=== PATIENT | female | born 1955 | race Caucasian/White ===

== ENCOUNTER 2017-09-07 11:02 | Emergency (ER) | payer BC ==
[~2017-09-07] VITALS: Ht 170.2 cm; Wt 158.8 kg
--- NOTE | 2017-09-07 12:09 | RAD ---
Left knee with patella, 4 views, 09/07/2017: History: Trauma No fracture or dislocation is identified. There is mild marginal spurring at the knee joint. There is more severe degenerative change at the patellofemoral articulation. No definite joint effusion is seen. IMPRESSION: 1. Moderate degenerative change. 2. No acute bony abnormality is detected.
--- NOTE | 2017-09-07 12:32 | PHYS DOC ---
General Chief Complaint: KNEE INJURY Stated Complaint: KNEE PAIN Time Seen by MD: 11:20 Source: patient Exam Limitations: no limitations Problems: History of Present Illness Initial Comments Patient is a 61-year-old morbidly obese female who comes to the ED complaining of left knee pain. Patient states that she stepped off curb wrong one week ago and felt a pop in her knee. She's had medial left knee pain since that time, she says she's had some swelling and cannot bear weight although she is ambulatory in the department. She complains of medial knee pain denies her knee giving out, she has not sought any medical treatment for this during this past week but today comes to the emergency department requesting pain medications. No left leg numbness tingling weakness or radiating symptoms, [id number] medications not helping. She denies prior left knee injury and states she did not actually fall and suffered no other injuries during the incident. Onset: last week Severity: severe Pain/Injury Location: left knee Method of Injury: other Modifying Factors: worse with jarring, worse with movement Allergies: Coded Allergies: Sulfa (Sulfonamide Antibiotics) (Verified Allergy, Unknown, 09/07/17) tramadol (Verified Allergy, Unknown, 09/07/17) Past Medical History Medical History: other (anxiety) Surgical History: other (hysterectomy, bilateral carpal tunnel) Social History Smoker: cigarettes Alcohol: none Drugs: none Review of Systems Constitutional: denies chills, denies fever Respiratory: denies cough, denies shortness of breath Cardiovascular: denies chest pain, denies palpitations Gastrointestinal: denies nausea, denies vomiting Musculoskeletal: see HPI (CT I told multiple) Skin: denies change in color Psychiatric/Neurological: see HPI Physical Exam General Appearance: no apparent distress, obese Neck: non-tender, supple Cardiovascular/Respiratory: normal peripheral pulses, no respiratory distress Back: no CVA tenderness, no vertebral tenderness Knees: right knee non-tender, right knee normal inspection, right knee normal range of motion, left knee other (one plus effusion, medial joint line tenderness, ligaments and tendons are intact Yesenia appears to be negative exam limited somewhat by patient's size. No palpable bony deformity and no bony tenderness. The extremity is neurovascularly intact. There are no skin breaks or abrasions or discolorations.) Neurologic/Tendon: normal sensation, normal motor functions, normal tendon functions, responds to pain, no evidence tendon injury Psychiatric: alert, oriented x 3 Skin: normal color, warm/dry Orders, Labs, Meds PATIENT: SRUTHI WILSON ACCOUNT: [id number] : 1955 LOCATION: ER AGE: 61 SEX: F EXAM STATUS: REG ER ORD. PHYSICIAN: MANASA WISDOM DO REASON: trauma PROCEDURE: KNEE LEFT 4V Left knee with patella, 4 views, 09/07/2017: History: Trauma No fracture or dislocation is identified. There is mild marginal spurring at the knee joint. There is more severe degenerative change at the patellofemoral articulation. No definite joint effusion is seen. IMPRESSION: 1. Moderate degenerative change. 2. No acute bony abnormality is detected. DICTATED AND SIGNED BY: DAVID JARA MD DATE: 09/07/17 1205 CC: PCP,NO; MANASA WISDOM DO ~ Clarification patient is not allergic to Tylenol or hydrocodone. I encouraged the patient to stop smoking. The patient states she would be unable to use crutches. She says she's embarrassed to use a wheelchair. She is asking for pain medications. I discussed knee immobilizer and Gamal wrap, she will wear the knee immobilizer except when driving at that time she needs to bend her knee as she has a standard transmission. She will use the Gamal wrap for support while driving. She agrees to follow-up with her doctor for recheck and to schedule outpatient MRI evaluation and she understands she may need orthopedics intervention. Departure Time of Disposition: 12:42 Disposition: 01 HOME, SELF-CARE Diagnosis: internal derangement left knee NOS Condition: GOOD Patient Instructions: Knee Effusion, RICE - Routine Care for Injuries, Easy-to- Read Additional Instructions: RICE, see handout. Limit standing and walking to "as needed" only. Wear the knee immobilizer as needed when standing and walking, use the Gamal wrap when driving and other activities in which he need to bend her knee. [id number] ibuprofen as needed for baseline discomfort. Prescription: [place] 7.5 mg quantity 30 You will need an MRI evaluation to determine the extent of injury with a near knee. Follow-up with your doctor to obtain this study. Return to ED with new or changing symptoms. MANASA WISDOM DO Sep 07, 2017 12:32
[2017-09-07] MEDS ORDERED: HYDR-965 PO (12:47)
[2017-09-07 12:55] VITALS: BP 152/80
== END 2017-09-07 13:00 | disposition home or self-care (01) ==
LOC: ER 11:02
DX: S89.92XA Unspecified injury of left lower leg, initial encounter (principal); Z88.2 Allergy status to sulfonamides; Z88.6 Allergy status to analgesic agent; Z88.5 Allergy status to narcotic agent; W22.8XXA Striking against or struck by other objects, initial encounter; Y93.89 Activity, other specified; Y99.8 Other external cause status; Y92.89 Other specified places as the place of occurrence of the external cause
CPT/HCPCS: 73564; 99284